=== PATIENT | female | born 1930 | race Caucasian/White ===

== ENCOUNTER 2020-08-21 21:00 | Inpatient (IN) | payer MEDICARE, OTHER ==
[~2020-08-21] VITALS: Ht 165.1 cm; Wt 44.4 kg
[~2020-08-21 21:00] MED LIST: ATEN-72 PO; ATOR10TA84 PO; ESTROGEN PO; LYRICA PO; [UNRECOGNIZED DRUG - OTHER] PO
[2020-08-21] MEDS ORDERED: ACETAMINOPHEN 500 MG TABLET PO ONE (22:15)
[2020-08-21] MEDS ORDERED: FLUT16H NASAL (22:34)
[2020-08-21] MEDS ORDERED: SERT-158 PO (22:34)
[2020-08-21] MEDS ORDERED: ASPI-1444 PO (22:34)
[2020-08-21] MEDS ORDERED: NUTR1PAC14 PO (22:34)
[2020-08-21] MEDS ORDERED: MULT-248 PO (22:34)
[2020-08-21] MEDS ORDERED: CYAN-36 PO (22:34)
[2020-08-21] MEDS ORDERED: ACET-2247 PO (22:34)
[2020-08-21] MEDS ORDERED: HYD25 PO (22:34)
[2020-08-21] MEDS ORDERED: CHOL500013 PO ×2 (22:34)
[2020-08-21] MEDS ORDERED: ATOR10TA84 PO (22:34)
[2020-08-21] MEDS ORDERED: DOCU-275 PO (22:34)
[2020-08-21] MEDS ORDERED: SENN-31 PO (22:34)
[2020-08-21] MEDS ORDERED: DIVA125C20 PO (22:34)
[2020-08-22] MEDS ORDERED: LORazepam 2 MG/ML VIAL IM ONE
[2020-08-22] MEDS ORDERED: HALOPERIDOL LACTATE 5 MG/ML VIAL IM ONE (02:15)
[2020-08-22] MEDS ORDERED: DiphenhydrAMINE HCL 50 MG/ML VIAL IM ONE (02:15)
[2020-08-22] MEDS ORDERED: ACETAMINOPHEN 500 MG TABLET PO ONE (05:30)
[2020-08-22 06:27] LABS: BASOPHILS % (AUTO) 0.5 % (0.0-2.0); EOSINOPHILS % (AUTO) 2.8 % (1.0-6.0); HEMATOCRIT 36.2 % (36-46); HEMOGLOBIN 11.6 g/dL (12.0-16.0); LYMPHOCYTES % (AUTO) 12.6 % (22.0-44.0); MEAN CORPUSCULAR HEMOGLOBIN 27.9 pg (26.0-34.0); MEAN CORPUSCULAR HGB CONC 32.2 G/dL (31.0-37.0); MEAN CORPUSCULAR VOLUME 87 fL (80-100); MONOCYTES # (AUTO) 0.8 K/uL (0.1-1.0); MONOCYTES % (AUTO) 9.7 % (2.0-9.0); NEUTROPHILS # (AUTO) 5.9 K/uL (1.8-7.7); NEUTROPHILS % (AUTO) 74.4 % (40.0-70.0); PLATELET COUNT (AUTO) 282 K/uL (150-450); RED BLOOD CELL COUNT(AUTO) 4.18 MIL/uL (4.00-5.20); RED CELL DISTRIBUTION WIDTH 15.3 % (11.5-14.5)
[2020-08-22] MEDS ORDERED: 0.9% SODIUM CHLORIDE 10 ML SYRINGE IVP PRN (06:30)
[2020-08-22] MEDS ORDERED: ACETAMINOPHEN 325 MG TABLET PO PRN (06:30)
[2020-08-22] MEDS ORDERED: ONDANSETRON HCL 4 MG/2 ML VIAL IVP PRN ×2 (06:30→08:15)
[2020-08-22 06:33] LABS: CALCIUM, TOTAL 9.6 mg/dL (8.8-10.5); CREATININE 0.89 mg/dL (0.60-1.30); POTASSIUM 3.6 mmol/L (3.5-5.1)
[2020-08-22 06:38] LABS: ALBUMIN 2.9 g/dL (3.4-5.0); BILIRUBIN,TOTAL 0.4 mg/dL (0.1-1.0); TOTAL PROTEIN, SERUM 8.2 g/dL (6.4-8.2)
[2020-08-22 06:59] LABS: COVID AG,FIA SOURCE NASOPHARYNGEAL
[2020-08-22] MEDS ORDERED: BISACODYL 10 MG RECTAL RECTAL SUPPOSITORY PR PRN (08:15)
[2020-08-22] MEDS: MULTIVITAMINS WITH MINERALS, THERAPEUTIC TABLET PO SCH (09:00)
[2020-08-22] MEDS: DOCUSATE SODIUM 100 MG CAPSULE PO SCH ×2 (09:00→19:58)
[2020-08-22 09:41] VITALS: BP 150/71
[2020-08-22] MEDS ORDERED: BUPIVACAINE HCL/PF 0.5% 30 ML VIAL ONE ×2 (12:12→13:17)
[2020-08-22] MEDS ORDERED: MUPIROCIN CALCIUM 2% 22 GM OINTMENT ONE (12:12)
[2020-08-22] MEDS ORDERED: MICROFIBRILLAR COLLAGEN 1 GM PACKAGE TP ONE (12:12)
[2020-08-22] MEDS: PANTOPRAZOLE SODIUM 40 MG/VIAL IVP SCH (12:13)
[2020-08-22] MEDS ORDERED: BUPIVACAINE LIPOSOME/PF 1.3%-13.3MG/ML SUSPENSION 20 ML VIAL INJ ONE (12:15)
[2020-08-22] MEDS ORDERED: RINGERS SOLUTION,LACTATED 1,000 ML IV ONE (12:31)
[2020-08-22] MEDS ORDERED: VANCOMYCIN HCL 1 GM/VIAL ONE (13:14)
[2020-08-22] MEDS ORDERED: BUPIVACAINE/EPI/PF 0.5% 30 ML VIAL ONE (13:17)
[2020-08-22] MEDS ORDERED: CYAN100T45 PO (13:22)
[2020-08-22] MEDS ORDERED: SUGAMMADEX SODIUM 200 MG/2 ML VIAL IVP ONE (13:32)
[2020-08-22] MEDS ORDERED: BUPIVACAINE LIPOSOME/PF 1.3%-13.3MG/ML SUSPENSION 10 ML VIAL INJ ONE (13:35)
[2020-08-22] MEDS ORDERED: FentaNYL CITRATE PF 100 MCG/2 ML VIAL IVP PRN (14:00)
[2020-08-22] MEDS ORDERED: HYDROmorphone 2 MG/ML VIAL IVP PRN (14:00)
[2020-08-22] MEDS: SODIUM CHLORIDE 0.9% 1,000 ML IV SCH (14:59)
[2020-08-22 15:04] VITALS: BP 106/59
[2020-08-22] MEDS ORDERED: ASCO500 PO (15:33)
[2020-08-22] MEDS ORDERED: AMLO2.5T96 PO (15:35)
[2020-08-22] MEDS ORDERED: LISI-892 PO (15:36)
[2020-08-22] MEDS ORDERED: CLOP75TA60 PO (15:36)
[2020-08-22] MEDS: CeFAZolin 2 GM/DEXTROSE 50 ML IV SCH (17:22)
[2020-08-22] MEDS: MORPHINE SULFATE 2 MG/ML SYRINGE IVP PRN (17:22)
[2020-08-22 19:51] VITALS: BP 116/67
[2020-08-22] MEDS: LORazepam 2 MG/ML VIAL IVP PRN (23:09)
[2020-08-22 23:51] VITALS: BP 116/58
[2020-08-23] MEDS ORDERED: ROCURONIUM BROMIDE 10 MG/ML 5 ML VIAL IVP ONE (01:41)
[2020-08-23] MEDS ORDERED: LIDOCAINE/PF 2% 5 ML VIAL IM ONE (01:41)
[2020-08-23] MEDS ORDERED: PROPOFOL 1% 20 ML VIAL IVP ONE (01:41)
[2020-08-23] MEDS ORDERED: EPHEDrine SULFATE 50 MG/ML VIAL IM ONE (01:41)
[2020-08-23] MEDS ORDERED: ONDANSETRON HCL 4 MG/2 ML VIAL IVP ONE (01:41)
[2020-08-23] MEDS ORDERED: 0.9% SODIUM CHLORIDE 10 ML VIAL IVP ONE (01:41)
[2020-08-23] MEDS ORDERED: FentaNYL CITRATE PF 100 MCG/2 ML VIAL IVP ONE (01:41)
[2020-08-23] MEDS ORDERED: PHENYLEPHRINE HCL 10 MG/ML VIAL IVP ONE (01:41)
[2020-08-23] MEDS: CeFAZolin 2 GM/DEXTROSE 50 ML IV SCH (02:41)
[2020-08-23] MEDS: MORPHINE SULFATE 2 MG/ML SYRINGE IVP PRN ×2 (03:38→08:38)
[2020-08-23 05:34] VITALS: BP 109/78
[2020-08-23 08:00] VITALS: BP 120/60
[2020-08-23] MEDS: OXYGEN THERAPY IH SCH (08:00)
[2020-08-23] MEDS: PANTOPRAZOLE SODIUM 40 MG/VIAL IVP SCH (08:43)
[2020-08-23] MEDS: ENOXAPARIN SODIUM 40 MG/0.4 ML PF SYRINGE SQ SCH (08:43)
[2020-08-23] MEDS: MULTIVITAMINS WITH MINERALS, THERAPEUTIC TABLET PO SCH (08:44)
[2020-08-23] MEDS: DOCUSATE SODIUM 100 MG CAPSULE PO SCH ×2 (08:44→21:24)
[2020-08-23] MEDS: SODIUM CHLORIDE 0.9% 1,000 ML IV SCH ×2 (08:44→17:20)
[2020-08-23] MEDS ORDERED: MULTIVITAMINS WITH MINERALS, THERAPEUTIC TABLET PO SCH (09:00)
[2020-08-23] MEDS: ACETAMINOPHEN 325 MG TABLET PO PRN ×2 (11:55→23:26)
[2020-08-23 12:00] VITALS: BP 119/55
[2020-08-23 16:04] VITALS: BP 111/51
[2020-08-23] MEDS ORDERED: PNEUMOCOCCAL VACCINE POLYVALENT 0.5 ML VIAL [PPSV23] IM. ONE (18:15)
[2020-08-23 20:00] VITALS: BP 118/67
[2020-08-23] MEDS: LORazepam 2 MG/ML VIAL IVP PRN (21:24)
[2020-08-23 23:22] VITALS: BP 118/69
[2020-08-24] MEDS ORDERED: LORazepam 2 MG/ML VIAL IVP ONE (01:15)
[2020-08-24 04:05] VITALS: BP 129/71
[2020-08-24] MEDS: LORazepam 2 MG/ML VIAL IVP PRN (04:52)
[2020-08-24 05:54] LABS: BASOPHILS % (AUTO) 0.6 % (0.0-2.0); EOSINOPHILS % (AUTO) 2.5 % (1.0-6.0); HEMATOCRIT 26.2 % (36-46); HEMOGLOBIN 8.6 g/dL (12.0-16.0); MEAN CORPUSCULAR HEMOGLOBIN 28.5 pg (26.0-34.0); MEAN CORPUSCULAR HGB CONC 32.6 G/dL (31.0-37.0); MEAN CORPUSCULAR VOLUME 87 fL (80-100); MONOCYTES # (AUTO) 0.8 K/uL (0.1-1.0); MONOCYTES % (AUTO) 11.3 % (2.0-9.0); NEUTROPHILS # (AUTO) 5.1 K/uL (1.8-7.7); NEUTROPHILS % (AUTO) 71.6 % (40.0-70.0); PLATELET COUNT (AUTO) 180 K/uL (150-450); RED CELL DISTRIBUTION WIDTH 15.1 % (11.5-14.5)
[2020-08-24 06:04] LABS: ANION GAP 5 mmol/L (8-16); CALCIUM, TOTAL 8.7 mg/dL (8.8-10.5); CARBON DIOXIDE 29 mmol/L (22-29); CHLORIDE 101 mmol/L (98-107); CREATININE 0.69 mg/dL (0.60-1.30); GLUCOSE,RANDOM 104 mg/dL (70-110); POTASSIUM 3.6 mmol/L (3.5-5.1); SODIUM SERUM 135 mmol/L (136-145); UREA NITROGEN, BLOOD 15 mg/dL (7-18)
[2020-08-24 06:19] LABS: GLOMERULAR FILTR. RATE CALC > 60 mL/min (>60)
[2020-08-24] MEDS: ENOXAPARIN SODIUM 40 MG/0.4 ML PF SYRINGE SQ SCH (07:58)
[2020-08-24] MEDS: OXYGEN THERAPY IH SCH ×2 (07:59→20:00)
[2020-08-24] MEDS: PANTOPRAZOLE SODIUM 40 MG/VIAL IVP SCH (07:59)
[2020-08-24] MEDS: DOCUSATE SODIUM 100 MG CAPSULE PO SCH ×2 (08:07→20:38)
[2020-08-24] MEDS: MULTIVITAMINS WITH MINERALS, THERAPEUTIC TABLET PO SCH (08:07)
[2020-08-24 08:36] VITALS: BP 115/63
[2020-08-24] MEDS: SODIUM CHLORIDE 0.9% 1,000 ML IV SCH (10:30)
[2020-08-24] MEDS: IBUPROFEN 400 MG TABLET PO PRN ×2 (10:45→17:50)
[2020-08-24 16:09] VITALS: BP 111/58
[2020-08-24 19:35] VITALS: BP 142/67
[2020-08-24] MEDS: ACETAMINOPHEN 325 MG TABLET PO PRN (20:38)
[2020-08-24 23:30] VITALS: BP 116/65
[2020-08-25] MEDS: ACETAMINOPHEN 325 MG TABLET PO PRN (02:43)
[2020-08-25 03:30] VITALS: BP 97/56
[2020-08-25] MEDS: SODIUM CHLORIDE 0.9% 1,000 ML IV SCH (05:02)
[2020-08-25 06:19] LABS: BASOPHILS % (AUTO) 0.6 % (0.0-2.0); EOSINOPHILS % (AUTO) 6.2 % (1.0-6.0); HEMATOCRIT 24.1 % (36-46); HEMOGLOBIN 7.8 g/dL (12.0-16.0); LYMPHOCYTES # (AUTO) 0.8 K/uL (1.0-4.8); LYMPHOCYTES % (AUTO) 13.7 % (22.0-44.0); MEAN CORPUSCULAR HEMOGLOBIN 28.4 pg (26.0-34.0); MEAN CORPUSCULAR HGB CONC 32.4 G/dL (31.0-37.0); MEAN CORPUSCULAR VOLUME 88 fL (80-100); MONOCYTES # (AUTO) 0.6 K/uL (0.1-1.0); MONOCYTES % (AUTO) 10.6 % (2.0-9.0); NEUTROPHILS # (AUTO) 3.8 K/uL (1.8-7.7); NEUTROPHILS % (AUTO) 68.9 % (40.0-70.0); PLATELET COUNT (AUTO) 171 K/uL (150-450); RED BLOOD CELL COUNT(AUTO) 2.75 MIL/uL (4.00-5.20); RED CELL DISTRIBUTION WIDTH 14.8 % (11.5-14.5)
[2020-08-25 07:19] VITALS: BP 104/53
[2020-08-25] MEDS: OXYGEN THERAPY IH SCH (08:00)
[2020-08-25] MEDS: MULTIVITAMINS WITH MINERALS, THERAPEUTIC TABLET PO SCH (08:47)
[2020-08-25] MEDS: PANTOPRAZOLE SODIUM 40 MG/VIAL IVP SCH (08:47)
[2020-08-25] MEDS: DOCUSATE SODIUM 100 MG CAPSULE PO SCH ×2 (08:47→22:08)
[2020-08-25] MEDS: ENOXAPARIN SODIUM 40 MG/0.4 ML PF SYRINGE SQ SCH ×2 (08:47→09:00)
[2020-08-25] MEDS ORDERED: RisperiDONE 0.5 MG TABLET PO PRN (11:15)
[2020-08-25] MEDS: FERROUS SULFATE 300 MG/5 ML LIQUID UDCUP PO SCH ×2 (11:25→22:07)
[2020-08-25] MEDS: DEXTROSE 5%-0.45% SODIUM CHL 1,000 ML IV SCH (11:26)
[2020-08-25 11:46] VITALS: BP 111/63
[2020-08-25 15:00] VITALS: BP 106/61
[2020-08-25] MEDS: IBUPROFEN 400 MG TABLET PO PRN (15:22)
[2020-08-25] MEDS: LORazepam 2 MG/ML VIAL IVP PRN ×2 (18:20→23:26)
[2020-08-25 19:30] VITALS: BP 113/56
[2020-08-25] MEDS ORDERED: SERTRALINE HCL 50 MG TABLET PO SCH (21:00)
[2020-08-25 23:16] VITALS: BP 109/55
[2020-08-26 04:00] VITALS: BP 123/65
[2020-08-26] MEDS: DEXTROSE 5%-0.45% SODIUM CHL 1,000 ML IV SCH (05:49)
[2020-08-26 07:04] VITALS: BP 127/65
[2020-08-26] MEDS: OXYGEN THERAPY IH SCH (08:00)
[2020-08-26] MEDS: MULTIVITAMINS WITH MINERALS, THERAPEUTIC TABLET PO SCH ×2 (08:49→08:56)
[2020-08-26] MEDS: FERROUS SULFATE 300 MG/5 ML LIQUID UDCUP PO SCH ×2 (08:49→08:56)
[2020-08-26] MEDS: IBUPROFEN 400 MG TABLET PO PRN (08:49)
[2020-08-26] MEDS: DOCUSATE SODIUM 100 MG CAPSULE PO SCH (08:49)
[2020-08-26] MEDS: ENOXAPARIN SODIUM 40 MG/0.4 ML PF SYRINGE SQ SCH (08:49)
[2020-08-26] MEDS: PANTOPRAZOLE SODIUM 40 MG/VIAL IVP SCH (08:50)
[2020-08-26 15:04] VITALS: BP 129/66
[2020-08-26] MEDS ORDERED: ENOX40DI9 SQ (15:16)
[2020-08-26] MEDS ORDERED: FERSL PO (15:17)
[2020-08-26] MEDS ORDERED: PANT-31 PO (15:18)
[2020-08-26] MEDS ORDERED: MULT-711 PO (15:18)
[2020-08-26] MEDS ORDERED: SERT-158 PO (15:19)
[2020-08-26] MEDS ORDERED: BISA-151 PO (15:20)
[2020-08-26] MEDS ORDERED: IBUP-1506 PO (15:20)
[2020-08-26] MEDS ORDERED: RISP0.5T39 PO (15:21)
== END 2020-08-26 18:40 | DRG 480 ==
LOC: EMS 21:49 → 6S 08-22 09:17 → 6N 08-23 07:21
PROVIDERS: ADMIT Internal Medicine; ATTEND Internal Medicine
PROC: 0QS734Z Reposition Left Upper Femur with Internal Fixation Device, Percutaneous Approach (ICD-10-PCS; principal; 2020-08-23)
DX: M84.452A Pathological fracture, left femur, initial encounter for fracture (principal); E43 Unspecified severe protein-calorie malnutrition; Z68.1 Body mass index [BMI] 19.9 or less, adult; M81.0 Age-related osteoporosis without current pathological fracture; Z20.822 Contact with and (suspected) exposure to COVID-19; D64.9 Anemia, unspecified; F02.80 Dementia in other diseases classified elsewhere, unspecified severity, without behavioral disturbance, psychotic disturbance, mood disturbance, and anxiety; G30.9 Alzheimer's disease, unspecified; F32.9 Major depressive disorder, single episode, unspecified; I10 Essential (primary) hypertension; J45.909 Unspecified asthma, uncomplicated; Z79.899 Other long term (current) drug therapy; E87.6 Hypokalemia; Z99.3 Dependence on wheelchair; Z78.1 Physical restraint status; Z51.5 Encounter for palliative care; W07.XXXA Fall from chair, initial encounter; Y92.89 Other specified places as the place of occurrence of the external cause; Y99.8 Other external cause status; Y93.89 Activity, other specified; Z79.82 Long term (current) use of aspirin; R62.7 Adult failure to thrive
CPT/HCPCS: 70450; 72125; 72170; 73502; 73503; 74176; 80048; 80053; 83735; 83880; 84100; 84484; 85025; 87081; 87426; 92610; 99285; A9575; C9113; C9290; J0690; J1200; J1630; J1650; J2060; J2270; J2370; J2405; J2704; J3010; J3370; J3490; J7030; J7120